=== PATIENT | female | born 1995 | race Two or more races ===

== ENCOUNTER 2018-05-11 14:22 | Emergency (ER) | payer OTHER ==
[2018-05-11 15:39] LABS: BASO % 0.1 % (0.0-1.0); EOS % 0.1 % (0.0-3.0); HEMATOCRIT 38.1 % (36.0-47.0); HEMOGLOBIN 13.5 g/dl (12.0-15.5); IMMATURE GRANULOCYTE % 0.3 % (0-3.0); LYMPH # 1.2 10^3/uL (1.5-6.5); LYMPH % 9.6 % (24.0-44.0); MEAN CORPUSCULAR HEMOGLOBIN 32.1 pg (27.0-33.0); MEAN CORPUSCULAR HGB CONC 35.4 g/dl (32.0-36.5); MEAN CORPUSCULAR VOLUME 90.7 fl (80.0-96.0); MONO # 0.6 10^3/uL (0.0-0.8); MONO % 4.6 % (0.0-5.0); NEUTROPHILS # 10.7 10^3/uL (1.8-7.7); NEUTROPHILS % 85.3 % (36.0-66.0); PLATELET COUNT, AUTOMATED 216 10^3/uL (150-450); WHITE BLOOD COUNT 12.5 10^3/uL (4.0-10.0)
[2018-05-11 15:50] LABS: CONTROL LINE HCG INT CTR LINE PRESENT; HCG, SERUM QUALITATIVE POSITIVE (NEGATIVE)
[2018-05-11 16:27] LABS: ALBUMIN 4.1 GM/DL (3.2-5.2); ALBUMIN/GLOBULIN RATIO 1.14 (1.00-1.93); ALKALINE PHOSPHATASE 66 U/L (45-117); ALT/SGPT 17 U/L (12-78); ANION GAP 12 MEQ/L (8-16); AST/SGOT 13 U/L (7-37); BILIRUBIN,DIRECT 0.2 MG/DL (0.0-0.2); BILIRUBIN,TOTAL 0.7 MG/DL (0.2-1.0); BLOOD UREA NITROGEN 12 MG/DL (7-18); CALCIUM LEVEL 9.2 MG/DL (8.5-10.1); CARBON DIOXIDE LEVEL 22 MEQ/L (21-32); CHLORIDE LEVEL 108 MEQ/L (98-107); GLOMERULAR FILTRATION RATE > 60.0 (>60); GLUCOSE, FASTING 81 MG/DL (70-100); LIPASE 145 U/L (73-393); POTASSIUM SERUM 3.8 MEQ/L (3.5-5.1); SODIUM LEVEL 142 MEQ/L (136-145); TOTAL PROTEIN 7.7 GM/DL (6.4-8.2)
[2018-05-11 18:11] LABS: KETONE, URINE AUTO RFX TRACE mg/dL (NEGATIVE); MUCUS, URINE RFX SMALL (NEGATIVE); NITRITE, URINE AUTO RFX NEGATIVE (NEGATIVE); RBC, URINE AUTO RFX 55 /HPF (0-3); SPECIFIC GRAVITY UR AUTO RFX 1.016 (1.002-1.035); SQUAM EPITHELIAL CELL UR AURFX 4 /HPF (0-6)
[2018-05-11 18:19] LABS: LEUKOCYTE ESTERASE UR AUTO RFX 3+ (NEGATIVE); WBC, URINE AUTO RFX TNTC /HPF (0-3)
[2018-05-11] MEDS: ACETAMINOPHEN 325 MG TAB PO (19:02)
[2018-05-11] MEDS: cefTRIAXone SOD 1 GM VIAL (J0696) IM (19:25)
== END 2018-05-11 19:50 | disposition home or self-care (01) ==
LOC: M ED 14:22
DX: O20.8 Other hemorrhage in early pregnancy (principal); O23.41 Unspecified infection of urinary tract in pregnancy, first trimester; Z3A.01 Less than 8 weeks gestation of pregnancy; Z98.890 Other specified postprocedural states; Z91.048 Other nonmedicinal substance allergy status
CPT/HCPCS: J0696

== ENCOUNTER 2018-11-08 11:24 | Outpatient (CLI) | payer OTHER ==
[~2018-11-08] VITALS: Ht 154.9 cm; Wt 68.7 kg
[~2018-11-08 11:24] MED LIST: KEFL500C17 PO
[2018-11-08] MEDS ORDERED: PRENTAB9 PO (11:37)
[2018-11-08 11:56] VITALS: BP 129/64
[2018-11-08] MEDS: ACETAMINOPHEN 500 MG TAB PO PRN ×2 (13:18→13:40)
[2018-11-08 13:22] VITALS: BP 125/66
[2018-11-08 13:37] LABS: HEMATOCRIT 33.5 % (36.0-47.0); HEMOGLOBIN 11.7 g/dl (12.0-15.5); MEAN CORPUSCULAR HEMOGLOBIN 33.1 pg (27.0-33.0); MEAN CORPUSCULAR HGB CONC 34.9 g/dl (32.0-36.5); MEAN CORPUSCULAR VOLUME 94.9 fl (80.0-96.0); PLATELET COUNT, AUTOMATED 173 10^3/uL (150-450); RED BLOOD COUNT 3.53 10^6/uL (4.00-5.40); WHITE BLOOD COUNT 7.3 10^3/uL (4.0-10.0)
--- NOTE | 2018-11-08 13:46 | REP ---
OB ULTRASOUND: Real-time sonographic evaluation of the gravid uterus performed. There is a single living intrauterine gestation with an estimated gestational age 31 weeks 4 days, EDC 01/06/2019. Today's measurements indicate appropriate growth. Biometry and Growth: BPD 78 mm = 31 weeks 2 days, 45th percentile HC 293 mm = 32 weeks 3 days, 61st percentile AC 273 mm = 31 weeks 3 days, 47th percentile FL 59 mm = 30 weeks 5 days, 38th percentile HC/AC ratio 1.07 within normal range. Estimated weight 1739 grams, 37th percentile. SEEN/GROSSLY UNREMARKABLE Lateral ventricles Yes Posterior fossa Yes Upper lip Yes Four-chamber heart Yes LVOT Yes RVOT Yes Stomach Yes Cord insertion Yes Three vessel cord Yes Kidneys Yes Bladder Yes Spine Yes Cervical length: Closed and measures 3.7 cm in length. heart rate: 139 beats per minute. position: Vertex. Placenta: Posterior and grade 0 with no previa or abruption. Amniotic fluid: Within normal limits. RAMESH 9.8 within the normal range of 3.7 to 24.0. S/D ratio 2.07 is below normal range of 2.5 to 3.5. RI: 0.52 is below the normal range 0.59 to 0.75. Electronically Signed by Jasiel Plunkett MD 11/09/2018 09:10 A
[2018-11-08 13:48] LABS: INR 0.93; PROTHROMBIN TIME 12.6 SECONDS (12.1-14.4)
[2018-11-08 13:49] LABS: PARTIAL THROMBOPLASTIN TIME 24.6 SECONDS (25.4-37.6)
[2018-11-08 14:56] VITALS: BP 111/58
--- NOTE | 2018-11-08 15:44 | NUR ---
[facility] L&D Outpatient L&D Triage Note S: Laurie is a 23 y/o G1 at 31+5 weeks via LMP and c/w 5+5 week US presenting for left groin pain. She reports slipping and landing on buttocks yesterday but reported that she did nearly a split when she fell yesterday and soreness to her groin since. She denies VB/LOF/CTX and endorses excellent FM. She denies any abdominal trauma when she fell and she denies being evaluated/treated following the fall. Her is uncomplicated and she is CP patient of Gloria Garcia. O: VSS/AF GEN: A&Ox3, NAD ABD: Gravid; NNTP; relaxed uterine resting tone. EXT: Neg homans, neg edema FHR: 135 baseline; moderate variability; + accelerations; no decelerations TOCO: No ctx TAUS: SIUP; + fm; + fca; fluid nml; no evidence of abruption; posterior placenta LABS: Rh +; coags NML; fibrinogen: 439 A/P: 23 y/o G1 at 31+5 via L/1TUS s/p fall on 07 NOV 2018. CAT I FHR. Reassuring status. No evidence of placental abruption. Likely strained ligament. Resolution of pain after admin of Tylenol 1000mg po. Extensive review of warning signs and return precautions. Reinforced importance of daily movement assessments. Pt has CP session on 22 Nov 2018. Dc'd to home following 4 hours of CAT I FHR tracing. She reports understanding of all instructions w/o questions/concerns.
[2018-11-08 15:47] VITALS: BP 126/67
== END 2018-11-08 16:09 | disposition home or self-care (01) ==
LOC: M LDO 11:24
PROVIDERS: ATTEND Obstetrics & Gynecology
DX: Z04.3 Encounter for examination and observation following other accident (principal); O99.89 Other specified diseases and conditions complicating pregnancy, childbirth and the puerperium; R10.2 Pelvic and perineal pain; Y92.89 Other specified places as the place of occurrence of the external cause; Y93.89 Activity, other specified; W19.XXXA Unspecified fall, initial encounter; Y99.8 Other external cause status; Z3A.31 31 weeks gestation of pregnancy
CPT/HCPCS: 36415; 59025; 76811; 85027; 85384; 85610; 85730; G0378; G0463

== ENCOUNTER 2018-12-23 07:03 | Inpatient (IN) | payer OTHER ==
[~2018-12-23] VITALS: Ht 154.9 cm; Wt 72.9 kg
[2018-12-23] VITALS (38 sets, daily range): BP systolic 105–156; BP diastolic 56–97
[~2018-12-23 07:03] MED LIST changes: +PRENTAB9 PO
[2018-12-23] MEDS ORDERED: LACTATED RINGER'S 1000 ML IV ONE ×2 (09:30→09:45)
[2018-12-23] MEDS ORDERED: OXYTOCIN DRIP 30 UNITS in APPROPRIATE DILUENT 1 EA IV SCH (09:45)
[2018-12-23] MEDS: LR 1,000 ML IV SCH ×2 (10:54→20:20)
[2018-12-23 11:07] LABS: HEMATOCRIT 34.1 % (36.0-47.0); MEAN CORPUSCULAR HEMOGLOBIN 33.1 pg (27.0-33.0); MEAN CORPUSCULAR HGB CONC 35.2 g/dl (32.0-36.5); MEAN CORPUSCULAR VOLUME 93.9 fl (80.0-96.0); PLATELET COUNT, AUTOMATED 141 10^3/uL (150-450); RED BLOOD COUNT 3.63 10^6/uL (4.00-5.40); WHITE BLOOD COUNT 7.4 10^3/uL (4.0-10.0)
[2018-12-23 11:08] LABS: TOTAL PROTEIN,RANDOM URINE 63.7 MG/DL (0.0-12.0)
--- NOTE | 2018-12-23 12:36 | HPE ---
DATE OF ADMISSION: 12/23/2018 HISTORY: This lady is a 23-year-old, 1, para 0, last menstrual period (LMP) 03/31/2018, expected date of confinement (EDC) 01/05/2019, at 38 and 1 weeks' of gestation today with a history of spontaneous rupture of membranes at 0400 hours clear liquid with no contractions and no vaginal bleeding. LABS: Show she is B+, HIV negative, hepatitis negative, RPR negative, rubella immune. Varicella immune. Pap is LGSIL. HPV is negative. Urine was positive for greater than 100,000 bacteria. Gonorrhea and chlamydia were negative. 1-hour glucose was 114. GBS is pending. Preliminary evaluation is presently negative. EXAMINATION: No distress. Symphysis fundus height is 38, vertex, posterior, 1 cm, 50% effaced -3 station. Lots of clear liquid was noted. Nitrazine was positive. Blood pressure is 156/75, respirations are 20, pulse 81, temperature 98.4. Her urine 1.015, pH 6 and +1 protein. Repeat of her blood pressure as indicated by the nurse was normal, however, it is not recorded anywhere here. We discussed the risk of GBS positive with no contractions and the fact as the longer one waits for contractions the higher risk of infection and that more intervention is required. With GBS status unknown at term with ruptured membranes, we usually wait 18 hours before treating unless the patient is delivered by then, or if we do get a culture and it is negative, we do not treat at all, but augmentation of labor should take place regarding the fact that it is now 6 hours since she has had her membranes ruptured and there has been no contractions. The strip shows a Category one with the occasional tightening noted. The rest of the examination is unremarkable. She is normocephalic, atraumatic. Neck full range of motion. Pupils equal and reactive to light. Chest is clear bilaterally to bases. No wheezes or rhonchi. No CVA tenderness. Distal pulses symmetric. No evidence of deep vein thrombosis (DVT), pulmonary embolism (PE) or superficial phlebitis. Abdomen: Soft. Four quadrant bowel sounds are noted. Symphysis fundus height as mentioned is 38. She has no rashes, lesions or pruritus. No arthralgia or myalgia. No joint pain. No complaint of cough, wheeze, shortness breath or dyspnea on exertion. Not bleeding. Neuro complete. No incontinence, urgency or frequency. No nausea, vomiting, diarrhea or constipation. No diabetic issues. 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 HPV negative. No evidence of sexually transmitted diseases (STDs). PAST MEDICAL/SURGICAL/FAMILY HISTORY: Noncontributory. She does not smoke, drink or abuse drugs. There is no domestic violence. She is only taking vitamins and has no known allergies. We discussed the risks and benefits for consenting for vaginal delivery, which is delivery through the vagina with the possible assistance of forceps or vacuum devices if needed for maternal or indications, and the assistance of vacuum devices that can assist with vaginal delivery when normal pushing efforts cannot achieve delivery on their own or when delivery is needed in an emergency for baby's well-being. Medications that may be required to induce or augment labor in order achieve vaginal delivery. An episiotomy may be required in order to help the baby deliver vaginally. Could also require repair of any lacerations or tears of the vagina or vulva that are caused by delivery. In some cases, emergencies can arise that require emergency section so quickly that there may not be enough time to stop and complete consent forms, however, discussion will take place with the physician on the understanding of the reason for this and delivery through the incision in the abdomen in situations where section may be safer to the mother and baby than continuing labor and is performed only when clinically indicated. The risks of vaginal delivery include but are not limited to, bleeding, infection, injury to the vagina or pelvic structures, injury to baby damage to the uterus, reaction to anesthesia, uterine rupture, risk of hysterectomy for life-threatening bleeding which is remote, and augment of labor may increase the risk of infection, uterine tachysystole, uterine rupture, heart rate abnormalities, need for emergency delivery and possibly hysterectomy, hemorrhage. There are additional risks with use of vacuum or forceps which include, scratches, hematoma to the head and intracranial bleeding. The patient expressed understanding of the risks and benefits and is comfortable with progressing with Pitocin augmentation. We will monitor temperature and hopefully have her GBS status confirmed in 2 hours time. All questions were answered.
[2018-12-23 13:54] LABS: ALT/SGPT 14 U/L (12-78); BILIRUBIN,TOTAL 0.2 MG/DL (0.2-1.0); CREATININE FOR GFR 0.68 MG/DL (0.55-1.30); GLOMERULAR FILTRATION RATE > 60.0 (>60); LDH LACTATE DEHYDROGENASE 187 U/L (84-246); URIC ACID 5.3 MG/DL (2.6-6.0)
[2018-12-23] MEDS ORDERED: FENTANYL 2MCG/ML ROPIVACAINE 0.2% IN 0.9% NACL 100ML IVBAG As Ordered ONE (15:55)
[2018-12-23] MEDS: FENTANYL/ROPIVACAINE/NACL BAG 100 ML EPIDURAL SCH ×2 (16:18→22:40)
[2018-12-23] MEDS ORDERED: REFRIGERATOR IV KEYS XX PRN (17:00)
[2018-12-23] MEDS ORDERED: diphenhydrAMINE INJ 50MG/ML VIAL (J1200) IV PRN (17:00)
[2018-12-23] MEDS ORDERED: EPIDURAL/PCA KEYS XX PRN (17:00)
[2018-12-23] MEDS ORDERED: ePHEDrine SULFATE 25 MG/5 ML(5MG/ML) SYRINGE IV PRN (17:00)
[2018-12-23] MEDS ORDERED: LACTATED RINGER'S 1000 ML IV PRN (17:00)
[2018-12-23] MEDS ORDERED: NALOXONE INJ 0.4 MG/1 ML VIAL (J2310) IV PRN (17:00)
[2018-12-23] MEDS ORDERED: ONDANSETRON 4MG/2ML VIAL (J2405) IV PRN (17:00)
[2018-12-23] MEDS ORDERED: EPIDURAL COMMENT XX SCH (17:00)
--- NOTE | 2018-12-23 21:38 | NUR ---
1700 hrs turned off Pitocin had deceleration with recovery cervix 5 cm -3 station rot no meconium. Plan restart Pitocin 30 minutes safe to proceed
--- NOTE | 2018-12-23 21:41 | NUR ---
1930 hours had late deceleration with immediate recovery Pitocin off recheck unchanged cervix. Plan leave off Pitocin allow to continue labor recheck cervix if remote from delivery consider cs. Patient and expressed understanding
[2018-12-23] MEDS ORDERED: BICITRA 30ML SOLN UDC PO ONE (23:45)
[2018-12-24] VITALS (9 sets, daily range): BP systolic 106–150; BP diastolic 56–91
[2018-12-24] MEDS ORDERED: BUPIVACAINE HCL 0.25% 10 ML VIAL SC ONE
[2018-12-24] MEDS ORDERED: ACETAMINOPHEN 650 MG SUPP PR SCH
[2018-12-24] MEDS ORDERED: AZITHROMYCIN INJ 500 MG, VIAL MATE ADAPTER 1 EACH in D5W 250 ML IV ONE ×3
[2018-12-24] MEDS ORDERED: ONDANSETRON 4MG/2ML VIAL (J2405) As Ordered ONE (00:06)
[2018-12-24] MEDS ORDERED: KETOROLAC 60 MG/2 ML VIAL (J1885) As Ordered ONE (00:06)
[2018-12-24] MEDS ORDERED: OXYTOCIN INJ 10 UNITS/ML VIAL (J2590) As Ordered ONE (00:06)
[2018-12-24] MEDS ORDERED: dexameTHASONE 4 MG/ML 1ML VIAL (J1100) As Ordered ONE (00:06)
[2018-12-24] MEDS ORDERED: MORPHINE PRES-FREE INJ 10 MG/10 ML VIAL (J2274) As Ordered ONE (00:07)
[2018-12-24] MEDS ORDERED: NALOXONE INJ 0.4 MG/1 ML VIAL (J2310) IV PRN ×2 (01:06)
[2018-12-24] MEDS ORDERED: diphenhydrAMINE INJ 50MG/ML VIAL (J1200) IV PRN ×2 (01:06→02:15)
[2018-12-24] MEDS ORDERED: NALBUPHINE HCL 10 MG/ML AMP (J2300) IV PRN ×2 (01:06→02:15)
[2018-12-24] MEDS ORDERED: METOCLOPRAMIDE INJ 10MG/2ML VIAL (J2765) IV PRN (01:06)
[2018-12-24] MEDS ORDERED: ONDANSETRON 4MG/2ML VIAL (J2405) IV PRN ×2 (01:06→02:15)
[2018-12-24] MEDS ORDERED: BUPIVACAINE/DEXTROSE 0.75% 2 ML AMP As Ordered ONE (01:44)
[2018-12-24] MEDS ORDERED: ePHEDrine SULFATE 25 MG/5 ML(5MG/ML) SYRINGE As Ordered ONE (01:44)
[2018-12-24 01:48] LABS: CORD GAS ABE V -5.9; CORD GAS O2 SAT V 68.2 %; CORD GAS PCO2 V 41.3 mmHg; CORD GAS PH V 7.304 UNITS; CORD GAS PO2 V 29.4 mmHg; CORD GAS SBC V 18.9 MEQ/L; CORD GAS TCO2 V 21.3 MEQ/L
[2018-12-24 01:52] LABS: CORD GAS ABE A -14.2; CORD GAS HCO3 A 11.1 MEQ/L; CORD GAS O2 SAT A 46.4 %; CORD GAS PCO2 A 26.6 mmHg; CORD GAS PH A 7.239 UNITS; CORD GAS PO2 A 24.3 mmHg; CORD GAS TCO2 A 11.9 MEQ/L
[2018-12-24] MEDS ORDERED: fentaNYL 100 MCG/2 ML INJECTION (J3010) IV PRN (02:15)
[2018-12-24] MEDS ORDERED: MEPERIDINE INJ 25 MG/ML VIAL (J2175) IV PRN (02:15)
[2018-12-24] MEDS: LR 1,000 ML IV SCH (03:50)
[2018-12-24] MEDS ORDERED: DOCUSATE SODIUM 100 MG CAP PO PRN (07:30)
[2018-12-24] MEDS ORDERED: RHOGAM 300 MCG (1500 IU) INJ (J2790) IM SCH (07:30)
[2018-12-24] MEDS ORDERED: PERCOCET 5MG/325MG TAB PO PRN (07:30)
[2018-12-24] MEDS ORDERED: METHYLERGONOVINE MALEATE 0.2 MG TAB PO PRN (07:30)
[2018-12-24] MEDS ORDERED: ANUSOL HC CREAM 30GM TOP PRN (07:30)
[2018-12-24] MEDS ORDERED: MOM 30ML SUSPENSION UDC PO PRN (07:30)
[2018-12-24] MEDS ORDERED: MEASLES,MUMPS,RUBELLA VACCINE INJ (MMR-II) (90707) SC SCH (07:30)
[2018-12-24] MEDS: KETOROLAC 30 MG/ML VIAL (J1885) IV SCH ×3 (07:56→19:47)
[2018-12-24] MEDS: PRENATAL VITAMINS CHEWABLE TABLET PO SCH (07:56)
--- NOTE | 2018-12-24 08:54 | IPN ---
DATE: 12/24/2018 This lady has been progressing quite slowly. We have been checking her every 2-3 hours. We are unable to commence the Pitocin because of the persistent and intermittent category 2 strip still. Patient examined and found to be 5-6 cm soft, OT, -3 station. We have been resuscitating her, also moving her from side to side and still there is no change despite the fact that she is having regular contractions without Pitocin. She has now been 4 hours plus with no progress and we discussed the risks and benefits of section including hemorrhage, infection, perforation, , reoperation, remote possibility of blood transfusion, remote possibility hysterectomy, remote possibility of laceration and admission to intensive-care unit (NICU). The patient and expressed understanding of the concerns. We do have presently a category 1 strip; however, the patient had to be IV bolused and turned from one side to the other in order to attain that. Our plan of management have a primary section for nonreassuring heart tones, failure progress, failure to dilate.
--- NOTE | 2018-12-24 09:05 | IPN ---
DATE: 12/24/2018 This lady is a 1, para 1 who came in with spontaneous rupture of membranes. GBS was negative. She had nonreassuring heart tones, failure to progress, failure to dilate, deep transverse arrest and cord issues, had a live female by primary section. On evaluation today, chest examination normal, uterus two below. Lochia is moderate. Four quadrant bowel sounds are noted. Incision is clean and dry. Her Livingston catheter is still in place. Her IV is being discontinued. She is normocephalic, atraumatic. Neck: Full range of motion. Pupils equal and reactive to light. Distal pulses are symmetric. No evidence of deep vein thrombosis (DVT), pulmonary embolism (PE), or superficial phlebitis. Chest is clear bilaterally bases. No wheezes or rhonchi. Her temperature this morning is 98.0, blood pressure 150/91, respirations are 70, pulse 67. The rest of the examination is unremarkable. The patient is anxious to proceed to breast-feeding and is anxious to be mobilized. The patient is planned for discharge tomorrow with a 2-week incision check and a 6-week check.
[2018-12-25 01:55] VITALS: BP 122/67
[2018-12-25] MEDS: IBUPROFEN 800 MG TAB PO SCH ×3 (03:38→20:03)
[2018-12-25 05:45] VITALS: BP 126/80
[2018-12-25 07:07] LABS: HEMATOCRIT 29.2 % (36.0-47.0); MEAN CORPUSCULAR HEMOGLOBIN 32.1 pg (27.0-33.0); MEAN CORPUSCULAR VOLUME 96.7 fl (80.0-96.0); PLATELET COUNT, AUTOMATED 110 10^3/uL (150-450); RED BLOOD COUNT 3.02 10^6/uL (4.00-5.40); WHITE BLOOD COUNT 10.4 10^3/uL (4.0-10.0)
[2018-12-25 07:35] LABS: HEMOGLOBIN 9.7 g/dl (12.0-15.5)
--- NOTE | 2018-12-25 07:46 | RO ---
DATE OF PROCEDURE: 12/24/2018 PREPROCEDURE DIAGNOSES: Deep transverse arrest, nonreassuring heart tones, failure to progress and failure to dilate. POSTOPERATIVE DIAGNOSES: Deep transverse arrest, cord times two, nonreassuring heart tones, failure to progress, failure to dilate. OPERATION PROPOSED: Primary section. OPERATION PERFORMED: Primary section. SURGEON: Abel Crump MD EMPLOYMENT OFFICE CLERK: Basilio Lowry DO for extraction, retraction and visualization. ANESTHESIA: Spinal plus local anesthetic for intraperitoneal procedures. ESTIMATED BLOOD LOSS: 200 mL. DESCRIPTION OF PROCEDURE: After adequate time-out, prepped and draped in the supine position, Livingston catheter in the bladder draining clear urine, sequentials in place, appropriate antibiotics on board. A Pfannenstiel incision was made two fingerbreadths above symphysis pubis, passing through abdominal layers, securing hemostasis. Opening peritoneal cavity, bladder reflected well down anteriorly, low transverse incision into the uterus. We delivered a live female weighing 6 pounds 6 ounces, 2890 grams, scores of 8 and 9 at one and five minutes respectively. Arterial pH 7.23, base excess -14.3, venous pH 7.30, base excess -5.9. Cord was around the ankle times two. The placenta delivered manually thereafter. Three-vessel cord, membranes and tissues intact. The uterus was swept out clean. The uterus contracted well down on Pitocin. The lower segment was oversewn in the usual fashion in two layers and reperitonealization was performed, with instrument and pad counts correct, both ovaries and tubes appeared to be normal, the uterus again was well contracted. The abdomen was then closed, running stitch for the peritoneum, same for the fascia, interrupted subcu, Dexon to the skin, spray and Telfa, and the patient was sent back to recovery in good condition.
--- NOTE | 2018-12-25 09:20 | IPNPDOC ---
Progress Note Date of Service: Dec 25, 2018 Day#: 1 Progress Note PP/POD 1 SUBJECT: Laurie is a 23yo s/p uncomplicated PLTCS on 12/24/18 when she presented in labor having NRFHT remote from delivery, doing well day # 1. She has been ambulating and tolerating regular diet. Voiding spontaneously without issue. Breast feeding without issue. Reports lochia is like a light period. Pain is well controlled. No f/c/n/v/CP/SOB. OBJECTIVE: VITAL SIGNS: Within normal limits, afebrile. Abdomen: Fundus firm at U-2. Soft, appropriately tender to palpation with no rebound/guarding. Pfannensteil incision is clean/dry/intact with no erythema/induration/drainage Extremities: no pain with palpation of calves Labs: pre-op H/H 12/34.1 post-op H/H 9.7/29.2 ASSESSMENT: Laurie is a 23yo s/p uncomplicated PLTCS on 12/24/18 when she presented in labor having NRFHT remote from delivery, doing well day # 1. Vitals within normal limits, afebrile, hemodynamically stable with no evidence of infection. Appropriate change in H/H. PLAN: 1. Routine post-op/post- care 2. Regular diet 3. Encourage ambulation, use of IS and breast feeding 4. Percocet and motrin prn pain 5. Likely discharge home tomorrow morning Dr. Angelina Sanabria MD VS, I&O, 24H, [facility] Vital Signs/I&O Vital Signs Date Time Temp Pulse Resp B/P (MAP) Pulse Ox O2 Delivery O2 Flow Rate FiO2 12/25/18 05:50 17 12/25/18 05:45 97.7 74 126/80 (95) 99 12/23/18 08:06 Room Air I&O- Last 24 Hours up to 6 AM 12/25/18 06:00 Intake Total 1180 ml Output Total 760 ml Balance 420 ml Laboratory Data 24H LABS Laboratory Tests 2 12/25/18 06:27: Nucleated Red Blood Cells % (auto) 0.0 CBC/BMP Laboratory Tests 12/25/18 06:27 Red Blood Count 3.02 L, Mean Corpuscular Volume 96.7 H, Mean Corpuscular Hemoglobin 32.1, Mean Corpuscular Hemoglobin Concent 0.0 L, Red Cell Distribution Width 12.8 Angelina Sanabria MD Dec 25, 2018 09:20
[2018-12-25] MEDS: PRENATAL VITAMINS CHEWABLE TABLET PO SCH (09:27)
[2018-12-25] MEDS: PERCOCET 5MG/325MG TAB PO PRN ×2 (09:28→17:29)
[2018-12-25 10:36] VITALS: BP 111/66
[2018-12-25 14:36] VITALS: BP 135/74
[2018-12-25 18:06] VITALS: BP 123/71
[2018-12-25 22:21] VITALS: BP 139/72
[2018-12-26 02:27] VITALS: BP 152/84
[2018-12-26] MEDS: IBUPROFEN 800 MG TAB PO SCH ×2 (04:02→12:03)
[2018-12-26 06:02] VITALS: BP 140/80
[2018-12-26] MEDS: PRENATAL VITAMINS CHEWABLE TABLET PO SCH (07:51)
[2018-12-26] MEDS ORDERED: COLA100C5 PO (09:28)
[2018-12-26] MEDS ORDERED: PERCOCET PO (09:28)
[2018-12-26] MEDS ORDERED: IBUP80TA PO (09:28)
--- NOTE | 2018-12-26 09:42 | DS.PDOC ---
Discharge Summary General Date of Admission Dec 23, 2018 at 09:39 Date of Discharge [id number] Discharge Summary ADMITTING DIAGNOSES: NRFHT remote from delivery DISCHARGE DIAGNOSES: Primary by Dr Crump HOSPITAL COURSE: Labor. delivery uncomplicated. course un complicated. DISCHARGE MEDICATIONS: Motrin, Lanolin, Percocet, Colace DISCHARGE INSTRUCTIONS: Nothing in the vagina for 6 weeks. No driving for 2 weeks. No bathing for 4 weeks, shower only. F/U in OBGYN clinic in 1-2 weeks for incision check with Dr Crump and routine follow-up in 6-8 weeks. Sessions Vital Signs/I&Os Vital Signs Date Time Temp Pulse Resp B/P (MAP) Pulse Ox O2 Delivery O2 Flow Rate FiO2 12/26/18 06:02 99.8 72 16 140/80 (100) 12/25/18 18:06 96 12/23/18 08:06 Room Air Discharge Medications Scheduled Ibuprofen (Ibuprofen) 800 Mg Tablet, 800 MG PO Q8H No.137/Iron/Folic Acd ( Vitamin Tablet) 1 Tab Tab, 1 TAB PO DAILY, (Reported) Scheduled PRN Docusate Sodium (Colace) 100 Mg Capsule, 100 MG PO QHSP PRN for CONSTIPATION Oxycodone/Acetaminophen (Oxycodone-Acetaminophen 5-325) 1 Each Tablet, 1 TAB PO Q4HP PRN for MILD PAIN (PS 1-4) Oxycodone/Acetaminophen (Oxycodone-Acetaminophen 5-325) 1 Each Tablet, 2 TAB PO Q4HP PRN for MODERATE/SEVERE PAIN (PS 5-10) Allergies Coded Allergies: nickel (Verified Allergy, Mild, 12/23/18) ITCHING SESSIONSJADON MD Dec 26, 2018 09:42
--- NOTE | 2018-12-26 09:45 | IPNPDOC ---
Text Note Date of Service The patient was seen on 12/26/18. NOTE POD 2 SUBJECT: Laurie is a 23yo s/p uncomplicated PLTCS on 12/24/18 when she presented in labor having NRFHT remote from delivery, doing well day # 2. She has been ambulating and tolerating regular diet. Voiding spontaneously without issue. Breast feeding without issue. Reports lochia is like a light period. Pain is well controlled. No f/c/n/v/CP/SOB. OBJECTIVE: VITAL SIGNS: Within normal limits, afebrile. Abdomen: Fundus firm at U-2. Soft, appropriately tender to palpation with no rebound/guarding. Pfannensteil incision is clean/dry/intact with no erythema/induration/drainage Extremities: no pain with palpation of calves Labs: pre-op H/H 12/34.1 post-op H/H 9.7/29.2 ASSESSMENT: Laurie is a 23yo s/p uncomplicated PLTCS on 12/24/18 when she presented in labor having NRFHT remote from delivery, doing well day # 2. Vitals within normal limits, afebrile, hemodynamically stable with no evidence of infection. Appropriate change in H/H. PLAN: 1. Routine post-op/post- care 2. Regular diet 3. Discharge home Sessions VS,Danny, I+O Danny NAVA I+O Vital Signs Date Time Temp Pulse Resp B/P (MAP) Pulse Ox O2 Delivery O2 Flow Rate FiO2 12/26/18 06:02 99.8 72 16 140/80 (100) 12/25/18 18:06 96 12/23/18 08:06 Room Air SESSIONS,JADON Damian MD Dec 26, 2018 09:44
== END 2018-12-26 13:50 | disposition home or self-care (01) | DRG 773 ==
LOC: M LDO 07:03 → M LDI 09:39 → M OBS 12-24 03:30
PROVIDERS: ADMIT Obstetrics & Gynecology; ATTEND Obstetrics & Gynecology
PROC: 10D00Z1 Extraction of Products of Conception, Low, Open Approach (ICD-10-PCS; principal; 2018-12-24 00:53)
DX: O76 Abnormality in fetal heart rate and rhythm complicating labor and delivery (principal); Z37.0 Single live birth; Z3A.38 38 weeks gestation of pregnancy; O62.0 Primary inadequate contractions; O64.0XX0 Obstructed labor due to incomplete rotation of fetal head, not applicable or unspecified; O69.82X0 Labor and delivery complicated by other cord entanglement, without compression, not applicable or unspecified

== ENCOUNTER 2019-09-24 06:04 | Emergency (ER) | payer OTHER ==
[~2019-09-24] VITALS: Ht 154.9 cm; Wt 63.6 kg
[~2019-09-24 06:04] MED LIST changes: +COLA100C5 PO; +IBUP80TA PO; +PERCOCET PO
[2019-09-24] MEDS ORDERED: ONDANSETRON 4MG/2ML VIAL (J2405) IV ONE (06:30)
[2019-09-24 06:44] LABS: HEMATOCRIT 45.8 % (36.0-47.0); HEMOGLOBIN 15.1 g/dl (12.0-15.5); MEAN CORPUSCULAR HEMOGLOBIN 29.3 pg (27.0-33.0); MEAN CORPUSCULAR VOLUME 88.9 fl (80.0-96.0); PLATELET COUNT, AUTOMATED 219 10^3/uL (150-450); RED BLOOD COUNT 5.15 10^6/uL (4.00-5.40); WHITE BLOOD COUNT 6.6 10^3/uL (4.0-10.0)
[2019-09-24] MEDS ORDERED: ACETAMINOPHEN TAB 650MG DOSE (2X325MG) PO ONE (06:45)
[2019-09-24] MEDS ORDERED: NS 1,000 ML IV ONE (06:45)
[2019-09-24 07:12] LABS: ALBUMIN 4.1 GM/DL (3.2-5.2); ALT/SGPT 20 U/L (12-78); AMYLASE 36 U/L (25-115); BILIRUBIN,DIRECT 0.2 MG/DL (0.0-0.2); BILIRUBIN,TOTAL 0.7 MG/DL (0.2-1.0); BLOOD UREA NITROGEN 16 MG/DL (7-18); CALCIUM LEVEL 8.8 MG/DL (8.5-10.1); CARBON DIOXIDE LEVEL 22 MEQ/L (21-32); CHLORIDE LEVEL 102 MEQ/L (98-107); CREATININE FOR GFR 0.76 MG/DL (0.55-1.30); GLOMERULAR FILTRATION RATE > 60.0 (>60); GLUCOSE, FASTING 118 MG/DL (70-100); HCG, SERUM QUANTITATIVE < 1.0 MIU/ML; LIPASE 49 U/L (73-393); POTASSIUM SERUM 3.9 MEQ/L (3.5-5.1); SODIUM LEVEL 135 MEQ/L (136-145)
[2019-09-24 07:19] LABS: INFLUENZA A AMPLIFICATION NEGATIVE (NEGATIVE); INFLUENZA B AMPLIFICATION NEGATIVE (NEGATIVE)
[2019-09-24] MEDS ORDERED: GI COCKTAIL 50ML BTL(HYOSCYAMINE/MAALOX/LIDOCAINE VISCOUS)(1:3:1) PO ONE (08:30)
[2019-09-24 09:13] LABS: CK-MB VALUE MASS < 1.0 NG/ML (<3.6); CPK CREATINE PHOSPHOKINASE 102 U/L (26-192); MB/CK RELATIVE INDEX 0.98 (< OR =4); TROPONIN I < 0.02 NG/ML (< 0.10)
[2019-09-24] MEDS ORDERED: ONDA4TAB6 PO (09:49)
[2019-09-24] MEDS ORDERED: PROT1TAB2 PO (09:49)
[2019-09-24 09:50] VITALS: BP 117/67
--- NOTE | 2019-09-26 05:52 | ECGEPIP ---
[facility] - ED Test Date: 2019-09-24 Pat Name: BRAYDON GREGORY Department: Room: - Gender: Female Senior Qc Technician: grey : 1995 Requested By: NEIL Peterson PA-C Order Number: [id number] Reading MD: Yan Guevara Measurements Intervals [place] Rate: 97 P: 38 MN: 138 QRS: -3 QRSD: 98 T: -8 QT: 343 QTc: 437 Interpretive Statements SINUS RHYTHM INDETERMINATE AXIS INCOMPLETE RIGHT BUNDLE BRANCH BLOCK MODERATE T-WAVE ABNORMALITY, CONSIDER ANTERIOR ISCHEMIA NO PRIORS FOR COMPARISON Electronically Signed on 09-26-2019 5:51:30 EST by Yan Guevara
== END 2019-09-24 10:08 | disposition home or self-care (01) ==
LOC: M ED 06:04
DX: K29.70 Gastritis, unspecified, without bleeding (principal); R11.2 Nausea with vomiting, unspecified; R19.7 Diarrhea, unspecified; Z91.09 Other allergy status, other than to drugs and biological substances
CPT/HCPCS: 80048; 80076; 81001; 82150; 82550; 82553; 83690; 84484; 84702; 85027; 87502; 93005; 96365; 96366; 99284; J2405

== ENCOUNTER 2019-10-11 19:48 | Emergency (ER) | payer OTHER ==
[~2019-10-11] VITALS: Ht 162.6 cm; Wt 63.6 kg
[~2019-10-11 19:48] MED LIST changes: +ONDA4TAB6 PO; +PROT1TAB2 PO
[2019-10-11 19:49] VITALS: BP 154/73
--- NOTE | 2019-10-12 11:58 | REP ---
Clinical: Trauma. Fall. Technique: AP, lateral, bilateral oblique views of the left first digit. Findings: No definite acute fracture or dislocation is appreciated. Subtle injury at the metaphyseal base of the distal phalanx cannot definitively be excluded and should be correlated with point of tenderness. Remainder examination appears normal. Impression: 1. No definite acute fracture. 2. However, subtle injury at the metaphyseal base of the distal phalanx cannot be excluded and requires correlation with mechanism of injury and point of tenderness. Electronically Signed by Del Hernandez MD 10/12/2019 11:50 A
--- NOTE | 2019-10-12 12:00 | REP ---
Clinical: Trauma. Technique: AP, lateral, bilateral oblique views left wrist . Findings: The carpal bones, surrounding osseous structures, soft tissues, and joint spaces are normal. There is no evidence for acute fracture or dislocation. No subcutaneous emphysema or radiodense foreign body. Impression: Normal wrist series. No acute fracture or dislocation Electronically Signed by Del Hernandez MD 10/12/2019 11:52 A
--- NOTE | 2019-10-14 09:28 | ED PDOC ---
Post-Departure Follow-Up ft danyel inman faxed formal report of left finger film for fu Velma Tamayo MD Oct 14, 2019 09:28
== END 2019-10-11 23:30 | disposition home or self-care (01) ==
LOC: M ED 19:48
DX: S63.602A Unspecified sprain of left thumb, initial encounter (principal); W10.8XXA Fall (on) (from) other stairs and steps, initial encounter; Y92.019 Unspecified place in single-family (private) house as the place of occurrence of the external cause; N04.9 Nephrotic syndrome with unspecified morphologic changes; Z91.048 Other nonmedicinal substance allergy status

== ENCOUNTER 2020-06-19 03:27 | Inpatient (IN) | payer OTHER ==
[~2020-06-19] VITALS: Ht 154.9 cm; Wt 75.3 kg
[2020-06-19] VITALS (7 sets, daily range): BP systolic 108–131; BP diastolic 61–71
[2020-06-19] MEDS ORDERED: LACTATED RINGER'S 1000 ML IV STA (03:50)
[2020-06-19] MEDS ORDERED: LR 1,000 ML IV SCH ×3 (03:50→08:30)
[2020-06-19] MEDS ORDERED: AZITHROMYCIN INJ 500 MG, VIAL MATE ADAPTER 1 EACH in D5W 250 ML IV ONE (04:00)
[2020-06-19] MEDS ORDERED: BICITRA 30ML SOLN UDC PO ONE ×2 (04:00→04:15)
[2020-06-19] MEDS ORDERED: ceFAZolin SOD 1 GM in D5W MINI-BAG PLUS 50 ML IV ONE (04:00)
[2020-06-19 04:13] LABS: HEMATOCRIT 35.5 % (36.0-47.0); HEMOGLOBIN 12.2 g/dl (12.0-15.5); MEAN CORPUSCULAR HEMOGLOBIN 31.5 pg (27.0-33.0); MEAN CORPUSCULAR HGB CONC 34.4 g/dl (32.0-36.5); MEAN CORPUSCULAR VOLUME 91.7 fl (80.0-96.0); PLATELET COUNT, AUTOMATED 163 10^3/uL (150-450); RED BLOOD COUNT 3.87 10^6/uL (4.00-5.40); WHITE BLOOD COUNT 8.3 10^3/uL (4.0-10.0)
[2020-06-19] MEDS ORDERED: LACTATED RINGER'S 1000 ML IV ONE (04:15)
[2020-06-19] MEDS ORDERED: BUPIVACAINE HCL 0.25% 10ML VIAL SC ONE ×2 (04:15→06:30)
[2020-06-19] MEDS ORDERED: ACETAMINOPHEN 650 MG SUPP PR ONE (04:15)
[2020-06-19] MEDS ORDERED: PRENTAB9 PO (04:32)
[2020-06-19] MEDS ORDERED: MORPHINE PRES-FREE INJ 10 MG/10 ML VIAL (J2274) As Ordered ONE (06:28)
[2020-06-19] MEDS ORDERED: ePHEDrine SULFATE 25 MG/5 ML(5MG/ML) SYRINGE As Ordered ONE (06:28)
[2020-06-19] MEDS ORDERED: PHENYLephrine HCL 500 MCG/5 ML (100MCG/ML) SYRINGE (J2370) As Ordered ONE (06:28)
[2020-06-19] MEDS ORDERED: OXYTOCIN 30 UNITS IN 0.9% NaCl 500ML IV BAG (J2590) As Ordered ONE ×2 (06:28→08:29)
[2020-06-19] MEDS ORDERED: diphenhydrAMINE 50MG/ML VIAL (J1200) IV PRN ×2 (06:55→13:15)
[2020-06-19] MEDS ORDERED: METOCLOPRAMIDE INJ 10MG/2ML VIAL (J2765 PER 1) IV PRN (06:55)
[2020-06-19] MEDS ORDERED: NALOXONE INJ 0.4MG/1ML VIAL (J2310 PER 1MG) IV PRN ×2 (06:55)
[2020-06-19] MEDS ORDERED: NALBUPHINE HCL 10 MG/ML AMP (J2300) IV PRN (06:55)
[2020-06-19] MEDS ORDERED: ONDANSETRON 4MG/2ML VIAL IV PRN ×2 (06:55→08:30)
[2020-06-19] MEDS ORDERED: dexameTHASONE 4 MG/ML 1ML VIAL (J1100 PER 1MG) As Ordered ONE (07:25)
[2020-06-19] MEDS ORDERED: ONDANSETRON 4MG/2ML VIAL As Ordered ONE (07:25)
[2020-06-19 07:35] LABS: CORD GAS ABE V -1.3; CORD GAS HCO3 V 24.9 MEQ/L; CORD GAS O2 SAT V 63.3 %; CORD GAS PCO2 V 46.6 mmHg; CORD GAS PH V 7.345 UNITS; CORD GAS PO2 V 25.8 mmHg; CORD GAS SBC V 22.4 MEQ/L; CORD GAS TCO2 V 26.3 MEQ/L
[2020-06-19 07:36] LABS: CORD GAS ABE A -1.5; CORD GAS HCO3 A 26.5 MEQ/L; CORD GAS O2 SAT A 55.8 %; CORD GAS PCO2 A 56.8 mmHg; CORD GAS PH A 7.286 UNITS; CORD GAS PO2 A 23.9 mmHg; CORD GAS SBC A 22.1 MEQ/L; CORD GAS TCO2 A 28.2 MEQ/L
[2020-06-19] MEDS ORDERED: KETOROLAC 60MG 2ML VIAL As Ordered ONE (07:53)
[2020-06-19] MEDS ORDERED: RHOGAM 300 MCG (1500 IU) INJ (J2790) IM SCH (08:30)
[2020-06-19] MEDS ORDERED: fentaNYL 100 MCG/2 ML INJECTION (J3010) IV PRN (08:30)
[2020-06-19] MEDS ORDERED: IBUPROFEN 600MG TAB PO PRN (08:30)
[2020-06-19] MEDS ORDERED: ANUSOL HC CREAM 30GM TOP PRN (08:30)
[2020-06-19] MEDS ORDERED: MOM 30ML SUSPENSION UDC PO PRN (08:30)
[2020-06-19] MEDS ORDERED: OXYTOCIN DRIP 30 UNITS in IV 1 EA IV ONE (08:30)
[2020-06-19] MEDS ORDERED: MEASLES,MUMPS,RUBELLA VACCINE INJ (MMR-II) (90707) SC SCH (08:30)
[2020-06-19] MEDS ORDERED: ACETAMINOPHEN TAB 650MG DOSE (2X325MG) PO PRN (08:30)
[2020-06-19] MEDS ORDERED: ACETAMINOPHEN 500 MG TAB PO PRN (08:30)
[2020-06-19] MEDS ORDERED: DOCUSATE SODIUM 100 MG CAP PO PRN (08:30)
[2020-06-19] MEDS ORDERED: IBUPROFEN 800 MG TAB PO PRN (08:30)
[2020-06-19] MEDS: PRENATAL VITAMINS CHEWABLE TABLET PO SCH (10:26)
[2020-06-19] MEDS: LR 1,000 ML IV SCH ×2 (13:08→20:45)
--- NOTE | 2020-06-19 13:57 | HPE ---
DATE OF ADMISSION: 06/19/2020 HISTORY OF PRESENT ILLNESS: 25-year-old 2, para 1, last menstrual period (LMP) 09/30/2019, estimated date of confinement (EDC) 07/06/2020 at 37 4/7 weeks with a history of spontaneous rupture of membranes and contractions. PAST HISTORY: December 24, 2018 38 weeks, section, female 6 pounds, 6 ounces. LABORATORY: B positive, HIV negative, hepatitis negative, RPR negative, rubella immune, varicella nonimmune. Pap ASCUS. Urine negative. Gonorrhea and chlamydia negative. One-hour glucose was 145, 3-hour GTT fasting was 89, 1 hour 141, 2 hour 134 and 3 hour 113. Group B strep (GBS) status unknown. PHYSICAL EXAMINATION: Temperature is 98.2, blood pressure 133/80, pulse is 77, respirations are 18. On examination, positive Nitrazine, spontaneous rupture of membranes with contractions. Category 1 strip. PLAN: Our plan of management is to do a repeat section as was per protocol. Risks and benefits of section was discussed with the patient including hemorrhage, infection, perforation, , reoperation, remote possibility of blood transfusion, remote possibility of hysterectomy for life threatening bleeding issues, possibility of baby in NICU, laceration of the fetus on exit from the uterus. The patient expressed understand and signed the consent form. All questions were answered. 40 minute discussion. Her hemoglobin was 12.2, hematocrit 35.5 and platelets are 163. MTDD
--- NOTE | 2020-06-19 13:59 | RO ---
DATE OF OPERATION: 06/19/2020 PREOPERATIVE DIAGNOSIS: Previous section, active labor, premature rupture of membranes. POSTOPERATIVE DIAGNOSIS: Premature rupture of membranes, active labor, previous section. OPERATION PROPOSED: Repeat section. OPERATION PERFORMED: Repeat section. ANESTHESIA: Spinal plus local anesthetic for intraperitoneal procedures. ESTIMATED BLOOD LOSS: 300 mL. SURGEON: Dr. Abel Crump TANK INSPECTOR: Dr. Orquidea Hernández, for extraction, retraction, and visualization, without which the procedure could not be completed. PROCEDURE IN DETAIL: After adequate time-out, prepped and draped in the supine position, Livingston catheter in the bladder draining clear urine, acetaminophen suppository 1300 mg per rectum, sequentials in place, appropriate antibiotics preoperatively, excising through the keloid that she had previously, passing through abdominal layers, securing hemostasis, opening the peritoneal cavity, bladder reflected well down, anterior Mobius was placed. A small low transverse incision was made into the uterus, ARM draining meconium-type liquor despite the factor that she had premature rupture of membranes. We delivered a live female infant, weighing 3150 grams, Apgars 8/9 at one and five minutes respectively, 6 pounds 15 ounces. Arterial pH 7.25, base excess -1.5, venous pH 7.34, base excess -1.3. The placenta was manually removed, three vessel cord, membranes and tissues intact. The uterus contracted well down under Pitocin. The lower segment was oversewn in the usual fashion in two layers, and reperitonealization was performed. With instrument and pad counts correct, the Mobius was removed. The ovaries and tubes appeared to be normal. The abdomen was then closed with running stitch for the peritoneum, same for the fascia, interrupted SQ, Dexon to the skin, Marcaine 0.25% 10 mL to the incision. Mepore dressing was placed over the incisional site. The uterus was still well- contracted under Pitocin. The patient tolerated the procedure well. MTDD
[2020-06-19] MEDS: KETOROLAC 30 MG/ML 1ML VIAL IV SCH ×2 (14:02→19:36)
[2020-06-20] MEDS: KETOROLAC 30 MG/ML 1ML VIAL IV SCH (02:52)
[2020-06-20 06:07] VITALS: BP 114/55
[2020-06-20 08:03] LABS: HEMATOCRIT 29.7 % (36.0-47.0); MEAN CORPUSCULAR HEMOGLOBIN 31.5 pg (27.0-33.0); MEAN CORPUSCULAR VOLUME 95.5 fl (80.0-96.0); PLATELET COUNT, AUTOMATED 116 10^3/uL (150-450); RED BLOOD COUNT 3.11 10^6/uL (4.00-5.40); WHITE BLOOD COUNT 9.6 10^3/uL (4.0-10.0)
[2020-06-20 08:10] LABS: HEMOGLOBIN 9.8 g/dl (12.0-15.5)
[2020-06-20] MEDS ORDERED: INFLUENZA QUADRIVALENT PF VACCINE 0.5ML SYRINGE IM ONE (09:00)
[2020-06-20] MEDS: PRENATAL VITAMINS CHEWABLE TABLET PO SCH (09:04)
[2020-06-20] MEDS: IBUPROFEN 800 MG TAB PO SCH ×2 (09:04→18:12)
[2020-06-20 10:00] VITALS: BP 129/58
[2020-06-20] MEDS: PERCOCET 5MG/325MG TAB PO PRN ×3 (12:39→21:02)
--- NOTE | 2020-06-20 13:40 | IPN ---
DATE: 06/20/2020 and postoperative day one. SUBJECTIVE: This lady is a 25-year-old 2, now para 2 admitted with spontaneous rupture of membranes and labor and she was booked for an elective repeat section. She had a repeat section, live female 6 pounds 15 ounces, 3150 gm, Apgars of 8 and 9 at 1 and 5 minutes respectively. Arterial pH 7.26, base excess -1.5, venous pH 7.34, base excess - 1.3. PHYSICAL EXAMINATION: The rest of the examination unremarkable. Normocephalic, atraumatic. Neck: full range of motion. Pupils equal and reactive to light. Distal pulses symmetric. No evidence of DVT, PE or superficial phlebitis. Chest was clear bilateral bases, no wheezes or rhonchi. No CVA tenderness. Abdomen is soft, four quadrant bowel sounds are noted. Incision is clean and dry. Uterus 2 below. Perineum is intact. She has no rashes, lesions or pruritus, no arthralgia or myalgia, no complaint of joint pain, no complaint of cough, wheeze, shortness of breath, or dyspnea on exertion. No nausea, vomiting, diarrhea or constipation. No urgency or frequency. She is voiding well, passing gas. Blood pressure this morning is 114/55, respirations 18, pulse 60 and temperature is 98.3. Her admitting hemoglobin was 12.2, hematocrit 35.5 and platelets are 163. PLAN: Medications to be dispensed at [facility]. Tomorrow will be discharged. Two week incision check at [facility], six week check at [facility]. All questions were answered. Twenty minute discussion. MERRILL
[2020-06-20 14:00] VITALS: BP 140/77
[2020-06-20 18:00] VITALS: BP 142/66
[2020-06-20 22:00] VITALS: BP 139/78
[2020-06-21 02:00] VITALS: BP 134/69
[2020-06-21] MEDS: IBUPROFEN 800 MG TAB PO SCH ×2 (02:16→11:48)
[2020-06-21] MEDS: PERCOCET 5MG/325MG TAB PO PRN ×3 (04:07→12:01)
[2020-06-21 06:00] VITALS: BP 122/78
[2020-06-21] MEDS: PRENATAL VITAMINS CHEWABLE TABLET PO SCH (07:39)
--- NOTE | 2020-06-21 08:40 | IPNPDOC ---
Progress Note Date of Service: Jun 21, 2020 Day#: 2 Progress Note SUBJECT: 25yo status post uncomplicated ERLTCS after presenting for SROM doing well day # 2. She has been ambulating, voiding spontaneously without issue and tolerating regular diet. Breast feeding without issue. Reports lochia is decreasing. Patient is ambulating well. Reports pain controlled on oral pain meds. OBJECTIVE: VITAL SIGNS: Within normal limits, afebrile. Alert and oriented times three. Breast: filling, nipples intact and nontender Abdomen: Fundus firm at U-2. Soft, NTTP. Incision: c/d/i with dressing in place Ext: no edema, no calf tenderness ASSESSMENT: 25yo status post uncomplicated ERLTCS doing well day # 2 Vitals within normal limits, afebrile, hemodynamically stable with no evidence of infection. PLAN: 1. Discharge to home today. 2. Percocet and Motrin for pain. Patient also to be fitted for abdominal binder to assist in pain control per RN request. 3. Encourage breast feeding and ambulation. 4. Encourage regular diet as tolerated 5. 2 week incision check appointment 6. Discussed return precautions at length. VS, I&O, 24H, Fishbone Vital Signs/I&O Vital Signs Date Time Temp Pulse Resp B/P (MAP) Pulse Ox O2 Delivery O2 Flow Rate FiO2 06/21/20 07:39 18 06/21/20 06:00 98.1 73 122/78 (93) 98 Room Air CJ ADAME DO Jun 21, 2020 08:40
[2020-06-21] MEDS ORDERED: INFLUENZA QUADRIVALENT PF VACCINE 0.5ML SYRINGE IM ONE (09:00)
== END 2020-06-21 12:10 | disposition home or self-care (01) | DRG 773 ==
LOC: M LDO 03:27 → M LDI 03:51 → M OBS 10:06
PROVIDERS: ADMIT Obstetrics & Gynecology; ATTEND Obstetrics & Gynecology
PROC: 10D00Z1 Extraction of Products of Conception, Low, Open Approach (ICD-10-PCS; principal; 2020-06-19 05:30)
DX: O42.02 Full-term premature rupture of membranes, onset of labor within 24 hours of rupture (principal); Z3A.37 37 weeks gestation of pregnancy; O34.211 Maternal care for low transverse scar from previous cesarean delivery; O77.0 Labor and delivery complicated by meconium in amniotic fluid; Z37.0 Single live birth